=== PATIENT | female | born 1995 | race Two or more races ===

== ENCOUNTER 2022-04-28 11:03 | Inpatient (IN) | payer OTHER ==
[2022-04-28] MEDS ORDERED: Nalbuphine 10 MG/0.5 ML Syringe IVPUSH PRN (11:15)
[2022-04-28] MEDS ORDERED: Lidocaine 1% 50 ML MDV INJECT PRN (11:15)
[2022-04-28] MEDS ORDERED: Oxytocin/Lactated Ringers 10 UNIT/1,000 ML BAG IV SCH ×2 (11:15→15:15)
[2022-04-28] MEDS ORDERED: Lactated Ringers 1,000 ML IV SCH (11:15)
[2022-04-28] MEDS ORDERED: Ibuprofen 600 MG Tab PO PRN (18:01)
[2022-04-28] MEDS ORDERED: Benzocaine/Menthol 20%-0.5% Spray 78 GM Cannister TOP PRN (18:01)
[2022-04-28] MEDS ORDERED: Witch Hazel Medicated Pads 40/Jar TOP PRN (18:01)
[2022-04-28] MEDS ORDERED: Acetaminophen 325 MG Tab PO PRN (18:01)
[2022-04-28] MEDS ORDERED: Sodium Chloride 0.9% 10 ML Syringe FLUSH SCH (21:00)
== END 2022-04-29 19:08 | disposition home or self-care (01) | DRG 805 ==
LOC: JD.OBCHECK 11:03 → JD.OB 11:08 → JD.OBCHECK 11:15 → JD.OB 17:35 → OBSVTOIN 17:56
PROVIDERS: ADMIT Obstetrics & Gynecology; ATTEND Obstetrics & Gynecology
PROC: 10E0XZZ Delivery of Products of Conception, External Approach (ICD-10-PCS; principal; 2022-04-28)
PROC: 0HQ9XZZ Repair Perineum Skin, External Approach (ICD-10-PCS; principal; 2022-04-28)
PROC: 10907ZC Drainage of Amniotic Fluid, Therapeutic from Products of Conception, Via Natural or Artificial Opening (ICD-10-PCS; principal; 2022-04-28)
DX: O26.62 Liver and biliary tract disorders in childbirth (principal); K83.1 Obstruction of bile duct; Z37.0 Single live birth; O70.0 First degree perineal laceration during delivery; Z3A.37 37 weeks gestation of pregnancy; Z91.018 Allergy to other foods
CPT/HCPCS: 36415; 59025; 59409; 85025; 86592; A9270-GY; J2590; J7120